=== PATIENT | male | born 1955 | race Two or more races ===

== ENCOUNTER 2021-07-10 14:28 | Emergency (ER) | payer OTHER ==
[~2021-07-10] VITALS: Ht 167.6 cm; Wt 72.6 kg
[2021-07-10] MEDS ORDERED: ZESTRIL2.5 MG (14:56)
[2021-07-10] MEDS ORDERED: ZOCOR40 MG PO (14:56)
[2021-07-10] MEDS ORDERED: ZETIA10 MG PO (14:58)
[2021-07-10] MEDS ORDERED: GLUMETZA500 MG PO (14:58)
== END 2021-07-10 17:30 | disposition home or self-care (01) ==
LOC: ER 14:28
DX: M25.561 Pain in right knee (principal); R00.2 Palpitations